=== PATIENT | female | born 1945 | race Caucasian/White ===

== ENCOUNTER 2017-05-12 17:02 | Inpatient (IN) | payer MEDICARE, OTHER ==
[~2017-05-12] VITALS: Ht 162.6 cm; Wt 101.6 kg
[2017-05-12] MEDS ORDERED: LISI-607 PO (17:50)
[2017-05-12] MEDS ORDERED: ATOR10TA PO (17:50)
[2017-05-12] MEDS ORDERED: METF500T4 PO (17:50)
[2017-05-12] MEDS ORDERED: ARIP15TA3 PO (17:50)
[2017-05-12] MEDS ORDERED: MAG HYDROX/AL HYDROX/SIMETH 30 ML UDC PO PRN (18:30)
[2017-05-12] MEDS ORDERED: MAGNESIUM HYDROXIDE 30 ML UDC PO PRN (18:30)
[2017-05-12] MEDS ORDERED: ALBU18HF2 INH (19:19)
[2017-05-12 19:32] VITALS: BP 136/77
[2017-05-12] MEDS ORDERED: DEXTROSE 50%-WATER 50 ML DISP.SYRIN IV PRN (20:00)
[2017-05-12] MEDS: ATORVASTATIN 10 MG TABLET PO SCH (21:14)
[2017-05-12] MEDS: BLOOD SUGAR DIAGNOSTIC 1 EACH STRIP IN SCH (21:27)
[2017-05-12 22:38] VITALS: BP 134/70
[2017-05-13 06:47] LABS: ALANINE AMINOTRANSFERASE 8 U/L (12-78); ALBUMIN 3.4 g/dL (3.4-5.0); ALKALINE PHOSPHATASE 74 U/L (46-116); ASPARTATE AMINOTRANSFERASE 16 U/L (15-37); BILIRUBIN,TOTAL 0.4 mg/dL (0.2-1.0); CALCIUM, SERUM 8.8 mg/dL (8.5-10.1); CARBON DIOXIDE 29 mmol/L (21-32); CHLORIDE 101 mmol/L (98-107); CREATININE 0.8 mg/dL (0.6-1.3); GLUCOSE 195 mg/dL (74-106); POTASSIUM 3.7 mmol/L (3.5-5.1); SODIUM SERUM 138 mmol/L (136-145); TOTAL PROTEIN, SERUM 6.6 g/dL (6.4-8.2); UREA NITROGEN, BLOOD 15 mg/dL (7-18)
[2017-05-13 06:55] LABS: CHOLESTEROL 129 mg/dL (<200); HDL CHOLESTEROL 59 mg/dL (40-60); LDL 63 mg/dL (0-99); TRIGLYCERIDES 131 mg/dL (30-150)
[2017-05-13] MEDS ORDERED: ALBUTEROL FS 2.5 MG/3 ML VIAL.NEB NEB PRN (07:57)
[2017-05-13 08:00] VITALS: BP 147/90
[2017-05-13] MEDS: BLOOD SUGAR DIAGNOSTIC 1 EACH STRIP IN SCH ×4 (08:15→22:21)
[2017-05-13] MEDS: METFORMIN 500 MG TABLET PO SCH ×2 (08:17→16:18)
[2017-05-13] MEDS: LISINOPRIL (5MG) 5 MG TABLET PO SCH (08:18)
[2017-05-13] MEDS: ARIPIPRAZOLE 5 MG TABLET PO SCH (11:15)
[2017-05-13 16:00] VITALS: BP 125/69
[2017-05-13 19:51] VITALS: BP 138/54
[2017-05-13] MEDS: ATORVASTATIN 10 MG TABLET PO SCH (21:18)
[2017-05-13] MEDS: INSULIN REGULAR, HUMAN 100 UNIT/ML 3 ML VIAL SQ PRN (22:22)
[2017-05-13 23:00] VITALS: BP 129/66
[2017-05-14] MEDS: ZOLPIDEM TARTRATE 5 MG TABLET PO PRN (00:10)
[2017-05-14 07:47] VITALS: BP 143/50
[2017-05-14] MEDS: LISINOPRIL (5MG) 5 MG TABLET PO SCH (08:01)
[2017-05-14] MEDS: ARIPIPRAZOLE 5 MG TABLET PO SCH (08:01)
[2017-05-14] MEDS: METFORMIN 500 MG TABLET PO SCH ×2 (08:01→16:01)
[2017-05-14] MEDS: BLOOD SUGAR DIAGNOSTIC 1 EACH STRIP IN SCH ×4 (08:01→21:56)
[2017-05-14] MEDS: INSULIN REGULAR, HUMAN 100 UNIT/ML 3 ML VIAL SQ PRN ×3 (08:32→22:19)
[2017-05-14] MEDS: AMOX/CLAVULANATE 875 MG TABLET PO SCH ×2 (09:25→20:32)
[2017-05-14] MEDS: BACITRACIN ZINC OINT PACKET 1 EA PACKET TP SCH ×2 (09:27→16:01)
[2017-05-14] MEDS: LORAZEPAM 0.5 MG TABLET PO PRN (14:13)
[2017-05-14] MEDS: ACETAMINOPHEN 325 MG TABLET PO PRN ×2 (15:58→22:14)
[2017-05-14 16:00] VITALS: BP 107/53
[2017-05-14] MEDS: CLOTRIMAZOLE 1% 15 GM TUBE TP SCH (16:01)
[2017-05-14 19:48] VITALS: BP 99/50
[2017-05-14 21:07] VITALS: BP 133/64
[2017-05-14] MEDS: ATORVASTATIN 10 MG TABLET PO SCH (21:54)
[2017-05-15] MEDS ORDERED: IBUPROFEN 400 MG TABLET ONE (01:19)
[2017-05-15] MEDS: IBUPROFEN 400 MG TABLET PO PRN (01:25)
[2017-05-15] MEDS: BLOOD SUGAR DIAGNOSTIC 1 EACH STRIP IN SCH ×4 (07:30→21:38)
[2017-05-15 08:00] VITALS: BP 156/68
[2017-05-15] MEDS: AMOX/CLAVULANATE 875 MG TABLET PO SCH ×2 (08:39→21:17)
[2017-05-15] MEDS: METFORMIN 500 MG TABLET PO SCH ×2 (08:39→18:28)
[2017-05-15] MEDS: LISINOPRIL (5MG) 5 MG TABLET PO SCH (08:39)
[2017-05-15] MEDS: ARIPIPRAZOLE 5 MG TABLET PO SCH (08:39)
[2017-05-15] MEDS: CLOTRIMAZOLE 1% 15 GM TUBE TP SCH ×2 (08:43→18:19)
[2017-05-15] MEDS: BACITRACIN ZINC OINT PACKET 1 EA PACKET TP SCH ×2 (08:43→18:29)
[2017-05-15] MEDS: INSULIN REGULAR, HUMAN 100 UNIT/ML 3 ML VIAL SQ PRN ×4 (08:45→21:37)
[2017-05-15] MEDS: LORAZEPAM 0.5 MG TABLET PO PRN (12:47)
[2017-05-15 16:00] VITALS: BP 112/59
[2017-05-15 20:06] VITALS: BP 114/61
[2017-05-15] MEDS: ATORVASTATIN 10 MG TABLET PO SCH (21:17)
[2017-05-15] MEDS: ZOLPIDEM TARTRATE 5 MG TABLET PO PRN (22:09)
[2017-05-16 08:00] VITALS: BP 141/67
[2017-05-16] MEDS: ARIPIPRAZOLE 5 MG TABLET PO SCH ×2 (08:43→16:35)
[2017-05-16] MEDS: METFORMIN 500 MG TABLET PO SCH ×2 (08:43→16:11)
[2017-05-16] MEDS: AMOX/CLAVULANATE 875 MG TABLET PO SCH ×2 (08:43→21:07)
[2017-05-16] MEDS: BLOOD SUGAR DIAGNOSTIC 1 EACH STRIP IN SCH ×4 (08:45→21:51)
[2017-05-16] MEDS: BACITRACIN ZINC OINT PACKET 1 EA PACKET TP SCH ×2 (08:45→16:36)
[2017-05-16] MEDS: CLOTRIMAZOLE 1% 15 GM TUBE TP SCH ×2 (08:45→16:14)
[2017-05-16] MEDS: LISINOPRIL (5MG) 5 MG TABLET PO SCH (08:45)
[2017-05-16] MEDS: INSULIN REGULAR, HUMAN 100 UNIT/ML 3 ML VIAL SQ PRN ×3 (12:14→21:53)
[2017-05-16] MEDS: ACETAMINOPHEN 325 MG TABLET PO PRN (12:19)
[2017-05-16 15:40] VITALS: BP 131/63
[2017-05-16 20:00] VITALS: BP 131/68
[2017-05-16] MEDS: ATORVASTATIN 10 MG TABLET PO SCH (21:07)
[2017-05-16] MEDS: ZOLPIDEM TARTRATE 5 MG TABLET PO PRN (21:08)
[2017-05-17] MEDS: LORAZEPAM 0.5 MG TABLET PO PRN (03:24)
[2017-05-17 06:42] LABS: BASOPHILS % (AUTO) 0.7 % (0.0-2.0); EOSINOPHILS # (AUTO) 0.1 /CMM (0.0-0.7); EOSINOPHILS % (AUTO) 1.7 % (0.0-6.0); HEMATOCRIT 35 % (33-45); HEMOGLOBIN 12.2 g/dL (11.5-14.8); LYMPHOCYTES # (AUTO) 2.6 /CMM (0.8-4.8); LYMPHOCYTES % (AUTO) 44.6 % (20.0-44.0); MEAN CORPUSCULAR HEMOGLOBIN 30 PG (26.0-33.0); MEAN CORPUSCULAR HGB CONC 35 g/dl (31.0-36.0); MEAN CORPUSCULAR VOLUME 88 fL (82-100); MONOCYTES # (AUTO) 0.6 /CMM (0.1-1.30); MONOCYTES % (AUTO) 9.4 % (2.0-12.0); NEUTROPHILS # (AUTO) 2.6 /CMM (1.8-8.9); NEUTROPHILS % (AUTO) 43.6 % (43.0-81.0); PLATELET COUNT (AUTO) 274 /CMM (150-450); RDW COEFFICIENT OF VARIATION 13.1 (11.5-15.0); RED BLOOD CELL COUNT(AUTO) 4.03 MIL/uL (4.0-5.2); WHITE BLOOD COUNT (AUTO) 5.9 K/uL (4.3-11.0)
[2017-05-17 07:11] LABS: CALCIUM, SERUM 8.5 mg/dL (8.5-10.1); CARBON DIOXIDE 28 mmol/L (21-32); CHLORIDE 105 mmol/L (98-107); CREATININE 0.6 mg/dL (0.6-1.3); GLUCOSE 107 mg/dL (74-106); POTASSIUM 3.9 mmol/L (3.5-5.1); SODIUM SERUM 140 mmol/L (136-145); UREA NITROGEN, BLOOD 13 mg/dL (7-18)
[2017-05-17] MEDS: BLOOD SUGAR DIAGNOSTIC 1 EACH STRIP IN SCH ×4 (07:23→21:12)
[2017-05-17] MEDS: INSULIN REGULAR, HUMAN 100 UNIT/ML 3 ML VIAL SQ PRN ×4 (07:25→21:59)
[2017-05-17 08:00] VITALS: BP 141/52
[2017-05-17] MEDS: LISINOPRIL (5MG) 5 MG TABLET PO SCH (08:35)
[2017-05-17] MEDS: ARIPIPRAZOLE 5 MG TABLET PO SCH ×2 (08:35→16:04)
[2017-05-17] MEDS: AMOX/CLAVULANATE 875 MG TABLET PO SCH ×2 (08:35→20:21)
[2017-05-17] MEDS: METFORMIN 500 MG TABLET PO SCH ×2 (08:35→16:04)
[2017-05-17] MEDS: CLOTRIMAZOLE 1% 15 GM TUBE TP SCH ×2 (08:36→16:05)
[2017-05-17] MEDS: BACITRACIN ZINC OINT PACKET 1 EA PACKET TP SCH ×2 (08:36→16:04)
[2017-05-17] MEDS: IBUPROFEN 400 MG TABLET PO PRN (12:45)
[2017-05-17 16:00] VITALS: BP 110/53
[2017-05-17 20:00] VITALS: BP 115/60
[2017-05-17] MEDS: ATORVASTATIN 10 MG TABLET PO SCH (21:12)
[2017-05-18] MEDS: IBUPROFEN 400 MG TABLET PO PRN ×2 (05:59→14:55)
[2017-05-18] MEDS: BLOOD SUGAR DIAGNOSTIC 1 EACH STRIP IN SCH ×4 (07:52→21:31)
[2017-05-18 08:00] VITALS: BP 127/60
[2017-05-18] MEDS: INSULIN REGULAR, HUMAN 100 UNIT/ML 3 ML VIAL SQ PRN ×2 (08:09→18:14)
[2017-05-18] MEDS: ARIPIPRAZOLE 5 MG TABLET PO SCH ×2 (08:49→16:09)
[2017-05-18] MEDS: LISINOPRIL (5MG) 5 MG TABLET PO SCH (08:49)
[2017-05-18] MEDS: BACITRACIN ZINC OINT PACKET 1 EA PACKET TP SCH ×2 (08:49→16:10)
[2017-05-18] MEDS: METFORMIN 500 MG TABLET PO SCH ×2 (08:49→16:09)
[2017-05-18] MEDS: AMOX/CLAVULANATE 875 MG TABLET PO SCH ×2 (08:49→21:13)
[2017-05-18] MEDS: CLOTRIMAZOLE 1% 15 GM TUBE TP SCH ×2 (08:50→16:10)
[2017-05-18 16:25] VITALS: BP 129/77
[2017-05-18 20:00] VITALS: BP 130/69
[2017-05-18] MEDS: ATORVASTATIN 10 MG TABLET PO SCH (21:13)
[2017-05-19] MEDS: LORAZEPAM 0.5 MG TABLET PO PRN (03:17)
[2017-05-19 07:59] VITALS: BP 138/76
[2017-05-19] MEDS: METFORMIN 500 MG TABLET PO SCH ×2 (08:09→16:52)
[2017-05-19] MEDS: AMOX/CLAVULANATE 875 MG TABLET PO SCH ×2 (08:09→21:43)
[2017-05-19] MEDS: LISINOPRIL (5MG) 5 MG TABLET PO SCH (08:09)
[2017-05-19] MEDS: ARIPIPRAZOLE 5 MG TABLET PO SCH ×2 (08:09→16:52)
[2017-05-19] MEDS: BACITRACIN ZINC OINT PACKET 1 EA PACKET TP SCH ×2 (08:10→17:03)
[2017-05-19] MEDS: CLOTRIMAZOLE 1% 15 GM TUBE TP SCH ×2 (08:11→17:03)
[2017-05-19] MEDS: BLOOD SUGAR DIAGNOSTIC 1 EACH STRIP IN SCH ×4 (08:11→21:39)
[2017-05-19] MEDS: IBUPROFEN 400 MG TABLET PO PRN (14:48)
[2017-05-19 15:51] VITALS: BP 117/58
[2017-05-19] MEDS: INSULIN REGULAR, HUMAN 100 UNIT/ML 3 ML VIAL SQ PRN ×2 (17:14→22:23)
[2017-05-19 19:45] VITALS: BP 139/77
[2017-05-19] MEDS: ZOLPIDEM TARTRATE 5 MG TABLET PO PRN (21:43)
[2017-05-19] MEDS: ATORVASTATIN 10 MG TABLET PO SCH (21:43)
[2017-05-20] MEDS: IBUPROFEN 400 MG TABLET PO PRN ×2 (00:35→08:59)
[2017-05-20 08:00] VITALS: BP 123/62
[2017-05-20] MEDS: LISINOPRIL (5MG) 5 MG TABLET PO SCH (08:15)
[2017-05-20] MEDS: METFORMIN 500 MG TABLET PO SCH (08:15)
[2017-05-20] MEDS: ARIPIPRAZOLE 5 MG TABLET PO SCH (08:15)
[2017-05-20] MEDS: AMOX/CLAVULANATE 875 MG TABLET PO SCH (08:15)
[2017-05-20] MEDS: BACITRACIN ZINC OINT PACKET 1 EA PACKET TP SCH (08:16)
[2017-05-20] MEDS: CLOTRIMAZOLE 1% 15 GM TUBE TP SCH (08:16)
[2017-05-20] MEDS: BLOOD SUGAR DIAGNOSTIC 1 EACH STRIP IN SCH ×2 (08:18→12:29)
[2017-05-20] MEDS: INSULIN REGULAR, HUMAN 100 UNIT/ML 3 ML VIAL SQ PRN ×2 (08:53→12:29)
[2017-05-20 16:00] VITALS: BP 112/62
== END 2017-05-20 16:00 | DRG 885 ==
LOC: GPS 17:02
PROVIDERS: ADMIT Psychiatry & Neurology Psychiatry; ATTEND Psychiatry & Neurology Psychiatry
DX: F31.9 Bipolar disorder, unspecified (principal); E11.65 Type 2 diabetes mellitus with hyperglycemia; E78.5 Hyperlipidemia, unspecified; F29 Unspecified psychosis not due to a substance or known physiological condition; Z73.6 Limitation of activities due to disability; G47.33 Obstructive sleep apnea (adult) (pediatric); E66.9 Obesity, unspecified; Z79.899 Other long term (current) drug therapy; Z59.0 Homelessness; Z68.38 Body mass index [BMI] 38.0-38.9, adult; L03.031 Cellulitis of right toe; B35.9 Dermatophytosis, unspecified; L60.0 Ingrowing nail
CPT/HCPCS: 36415; 80048-TC; 80053-TC; 80061-TC; 82962-TC; 85025-TC; 87081-TC; 93971-TC; J1815

== ENCOUNTER 2017-10-29 11:55 | Inpatient (IN) | payer MEDICARE, OTHER ==
[~2017-10-29] VITALS: Ht 160 cm; Wt 93.4 kg
[~2017-10-29 11:55] MED LIST: ALBU18HF2 INH; ATOR10TA PO; LISI-607 PO; METF500T6 PO
[2017-10-30 14:25] VITALS: BP 137/65
[2017-10-30] MEDS ORDERED: MAGNESIUM HYDROXIDE 30 ML UDC PO PRN (14:30)
[2017-10-30] MEDS ORDERED: MAG HYDROX/AL HYDROX/SIMETH 30 ML UDC PO PRN (14:30)
--- NOTE | 2017-10-30 15:11 | NUR ---
GPS RN ADMITTING NOTE: PATIENT ADMITTED FROM [facility] ON 5150 FO DTO,GD, PER HOLD PT PT HAS DX OF SCHIZOPHRENIA REFUSING FCI EVICTED FROM HER PLACE. PT WAS WALKING AROUND THE HOUSE WITH DRESS WIDE OPEN EXPOSING HERSELF. PT THROWING ITEMS AROUND THE HOUSE YELLING REFUSING MEDICATIONS. UPON FACE TO FACE ASSESSMENT PT PARANOID,ANXIOUS ,A/OX1 . REFUSED SKIN ASSESSMENT REFUSED TO SIGN ADMITTING PAPERS.DR FERMIN NOTIFIED WITH ORDERS WILL CONTINUE MONITORING FOR SAFETY AND BEHAVIOR Q 15 MIN INDORSE TO INCOMING SHIFT RN FOR CONTINUATION OF CARE.
--- NOTE | 2017-10-30 15:42 | NUR ---
GPS RN NOTE; DR MONGE NOTIFIED OF ADMISSION TO [facility].
[2017-10-30 16:29] VITALS: BP 137/65
[2017-10-30] MEDS: LORAZEPAM 0.5 MG TABLET PO PRN (18:56)
--- NOTE | 2017-10-30 18:57 | NUR ---
GPS RN NOTE; PATIENT YELLING VERY ANXIOUS ATIVAN 1 MG PO PRN GIVEN PER ORDER WILL CONTINUE MONITORING FOR SAFETY AND BEHAVIOR Q 15 MIN.
[2017-10-30 20:25] VITALS: BP 132/86
[2017-10-30] MEDS: ZOLPIDEM TARTRATE 5 MG TABLET PO PRN (20:47)
[2017-10-30] MEDS: ACETAMINOPHEN 325 MG TABLET PO PRN (20:47)
[2017-10-31 07:40] LABS: ALANINE AMINOTRANSFERASE 13 U/L (12-78); ALBUMIN 3.6 g/dL (3.4-5.0); ALKALINE PHOSPHATASE 81 U/L (46-116); ASPARTATE AMINOTRANSFERASE 15 U/L (15-37); BILIRUBIN,TOTAL 0.6 mg/dL (0.2-1.0); CARBON DIOXIDE 28 mmol/L (21-32); CHLORIDE 102 mmol/L (98-107); CREATININE 0.7 mg/dL (0.6-1.3); GLUCOSE 158 mg/dL (74-106); POTASSIUM 4.4 mmol/L (3.5-5.1); SODIUM SERUM 138 mmol/L (136-145); TOTAL PROTEIN, SERUM 6.9 g/dL (6.4-8.2); UREA NITROGEN, BLOOD 8 mg/dL (7-18)
[2017-10-31 07:44] LABS: CHOLESTEROL 158 mg/dL (<200); HDL CHOLESTEROL 57 mg/dL (40-60); LDL 89 mg/dL (0-99); TRIGLYCERIDES 139 mg/dL (30-150)
[2017-10-31] MEDS: LORAZEPAM 0.5 MG TABLET PO PRN (08:36)
--- NOTE | 2017-10-31 08:40 | NUR ---
GPS/RN-NOTES PATIENT PACING IN THE HALLWAY SCREAMING AND YELLING,UNABLE TO SIT STILL WITH EPISODE OF CRYING. REDIRECTED PATIENT AND OFFERED ATIVAN AND AGREED. ATIVAN 1MG P.O GIVEN PRN ORDER. WILL CONT. MONITORING Q15 MINS. FOR SAFETY AND BEHAVIOR.
[2017-10-31] MEDS ORDERED: BENZ1TAB7 PO (08:47)
[2017-10-31] MEDS ORDERED: ARIP15TA8 PO (08:47)
[2017-10-31] MEDS ORDERED: DULO60CA63 PO (08:47)
[2017-10-31 09:15] VITALS: BP 128/70
[2017-10-31] MEDS: BLOOD SUGAR DIAGNOSTIC 1 EACH STRIP IN SCH ×3 (12:50→21:29)
--- NOTE | 2017-10-31 12:51 | NUR ---
GPS/RN-NOTES PATIENT BLOOD SUGAR WAS 143MG/DL, 2UNITS OF R INSULIN NOT GIVEN DUE TO PATIENT REFUSED.STATED" I JUST FINISH MY LUNCH OF COURSE MY SUGAR WILL BE UP". CHARGE NURSE AWARE.
[2017-10-31] MEDS ORDERED: DEXTROSE 50%-WATER 50 ML DISP.SYRIN IV PRN (13:00)
[2017-10-31] MEDS ORDERED: ALBUTEROL FS 2.5 MG/0.5 ML VIAL.NEB NEB PRN (13:30)
[2017-10-31 16:00] VITALS: BP 114/57
--- NOTE | 2017-10-31 16:20 | NUR ---
Initial Discharge Plan: Pt currently resides at [address] [place] [id number]; ([phone]). Per pt, she does not want to return there and would like to go to a detention facility. SW will work with the pt and the MD regarding appropriate discharge planning. SW will form a safe and proper discharge.
--- NOTE | 2017-10-31 16:20 | NUR ---
CATHLEEN called the pt's brother, Wagner Noel ([phone]), and was unable to leave a message due to his voicemail being full.
[2017-10-31] MEDS: ARIPIPRAZOLE 5 MG TABLET PO SCH (16:35)
[2017-10-31] MEDS: BENZTROPINE MESYLATE (1 MG) 1 MG TABLET PO SCH (16:35)
[2017-10-31] MEDS: METFORMIN 500 MG TABLET PO SCH (16:35)
[2017-10-31] MEDS: ACETAMINOPHEN 325 MG TABLET PO PRN (16:35)
--- NOTE | 2017-10-31 16:51 | NUR ---
GPS/RN-NOTES PATIENT C/O HEADACHE AND REQUESTING FOR TYLENOL, TYLENOL 650MG P.O GIVEN PRN ORDER. WILL CONT. MONITORING .
[2017-10-31] MEDS: INSULIN REGULAR, HUMAN 100 UNIT/ML 3 ML VIAL SQ PRN (18:20)
[2017-10-31 19:15] LABS: APPEARANCE,URINE CLEAR (CLEAR); BILIRUBIN,URINE NEGATIVE (NEGATIVE); BLOOD, URINE NEGATIVE Ery/uL (NEGATIVE); COLOR,URINE YELLOW (YELLOW); KETONES,URINE NEGATIVE (NEGATIVE); LEUKOCYTE ESTERASE ,URINE NEGATIVE (NEGATIVE); NITRITE, URINE NEGATIVE (NEGATIVE); PROTEIN,URINE NEGATIVE (NEGATIVE); UGLUCOSE NEGATIVE (NEGATIVE); UROBILINOGEN,URINE 0.2 EU/dL (0.2)
[2017-10-31 20:00] VITALS: BP 132/50
[2017-10-31] MEDS: DIVALPROEX SODIUM 250 MG TABLET.DR PO SCH ×2 (20:32→21:00)
[2017-10-31] MEDS: ATORVASTATIN 10 MG TABLET PO SCH (21:13)
[2017-10-31] MEDS: ZOLPIDEM TARTRATE 5 MG TABLET PO PRN (21:13)
--- NOTE | 2017-10-31 21:14 | NUR ---
AMBIEN 5 MG TAB 1 PO GIVEN FOR SLEEP PER PATIENT'S REQUEST.
--- NOTE | 2017-10-31 21:33 | NUR ---
ACCUCHECK 134 MG/DL, PATIENT REFUSED INSULIN, OFFERED X2, STILL REFUSED. PATIENT STATED, " I'M NOT GONNA TAKE IT AGAIN, THEY JUST GAVE ME."
--- NOTE | 2017-10-31 21:34 | NUR ---
PATEINT C/O NECK PAIN, MEDICATION NOT DUE YET. CALLED DR. JUSTICE, ORDERED TO CHANGE TYLENOL 650 MG Q 4 HRS. PRN
--- NOTE | 2017-10-31 21:36 | NUR ---
PATIENT WAS OFFERED TYLENOL 650 MG PO X2, FOR HER NECK PAIN. PATIENT REFUSED TYLENOL.
--- NOTE | 2017-10-31 22:29 | NUR ---
2100 PATIENT REFUSED DEPAKOTE 250 MG TAB TONIGHT. OFFERED 2X, STILL REFUSED.
[2017-11-01] MEDS: BLOOD SUGAR DIAGNOSTIC 1 EACH STRIP IN SCH ×4 (07:38→21:20)
[2017-11-01 08:00] VITALS: BP 125/80
[2017-11-01] MEDS: METFORMIN 500 MG TABLET PO SCH ×2 (08:12→16:55)
[2017-11-01] MEDS: DIVALPROEX SODIUM 250 MG TABLET.DR PO SCH ×2 (08:12→21:09)
[2017-11-01] MEDS: BENZTROPINE MESYLATE (1 MG) 1 MG TABLET PO SCH ×2 (08:12→16:55)
[2017-11-01] MEDS: DULOXETINE HCL 30 MG CAPSULE.DR PO SCH (08:12)
[2017-11-01] MEDS: ARIPIPRAZOLE 5 MG TABLET PO SCH ×2 (08:12→16:55)
[2017-11-01] MEDS: LISINOPRIL (5MG) 5 MG TABLET PO SCH (08:13)
[2017-11-01 08:50] LABS: MAGNESIUM 1.9 mg/dL (1.8-2.4); PHOSPHORUS 4.4 mg/dL (2.5-4.9)
[2017-11-01] MEDS: INSULIN REGULAR, HUMAN 100 UNIT/ML 3 ML VIAL SQ PRN (08:53)
[2017-11-01 09:37] LABS: THYROID STIMULATING HORMONE 1.845 uIU/mL (0.358-3.74)
[2017-11-01] MEDS: LORAZEPAM 0.5 MG TABLET PO PRN (11:16)
--- NOTE | 2017-11-01 11:19 | NUR ---
GPS/RN-NOTES PATIENT IN HER ROOM SCREAMING AND YELLING, WITH EPISODE OF CRYING. REDIRECTED PATIENT AND OFFERED ATIVAN AND AGREED. ATIVAN 1MG P.O GIVEN PRN ORDER. WILL CONT. MONITORING Q15 MINS. FOR SAFETY AND BEHAVIOR.
--- NOTE | 2017-11-01 11:47 | NUR ---
GPS/RN-NOTES SEEN BY SALEEM MAI TODAY WITH VERBAL ORDER OF IBUPROFEN 400MG P.O Q8HRS PRN AND STONE REPAIRER CONSULT NOTED AND CARRIED OUT.
--- NOTE | 2017-11-01 12:20 | NUR ---
GPS/RN-NOTES PATIENT SITTING IN HER BED WRITING,CALM,NO ACUTE DISTRESS NOTED.
--- NOTE | 2017-11-01 14:47 | NUR ---
SW sent out referrals and the pt was accepted into [facility].
[2017-11-01 16:16] VITALS: BP 129/79
[2017-11-01 20:00] VITALS: BP 131/81
--- NOTE | 2017-11-01 20:15 | NUR ---
Patient up ambulating with her walker, in good mood at this time, calm and cooperative. No complaints made, comfortable, shows no s/s of pain. Patient in and out of her room to the dining area and back. Will continue to monitor q 15 mins. to maintain safety.
[2017-11-01] MEDS: ZOLPIDEM TARTRATE 5 MG TABLET PO PRN (21:10)
[2017-11-01] MEDS: ATORVASTATIN 10 MG TABLET PO SCH (21:10)
--- NOTE | 2017-11-01 21:35 | NUR ---
ACCUCHECK 110 MG/DL, NO INSULIN DUE AT THSI TIME. HS SNACKS GIVEN.
[2017-11-02] MEDS: ACETAMINOPHEN 650 MG/20.3 ML UDC NG PRN (02:30)
--- NOTE | 2017-11-02 02:31 | NUR ---
c/o right neck pain, tylenol 650 mg po given.
[2017-11-02] MEDS: IBUPROFEN 400 MG TABLET PO PRN ×2 (06:42→17:34)
--- NOTE | 2017-11-02 06:43 | NUR ---
MOTRIN 400 MG TAB PO GIVEN.FOR NECK PAIN.
[2017-11-02] MEDS: BLOOD SUGAR DIAGNOSTIC 1 EACH STRIP IN SCH ×4 (07:30→22:10)
[2017-11-02 08:00] VITALS: BP 145/83
[2017-11-02] MEDS: BENZTROPINE MESYLATE (1 MG) 1 MG TABLET PO SCH ×2 (09:46→17:34)
[2017-11-02] MEDS: ARIPIPRAZOLE 5 MG TABLET PO SCH ×2 (09:47→17:35)
[2017-11-02] MEDS: METFORMIN 500 MG TABLET PO SCH ×2 (09:47→17:35)
[2017-11-02] MEDS: DULOXETINE HCL 30 MG CAPSULE.DR PO SCH (09:47)
[2017-11-02] MEDS: DIVALPROEX SODIUM 250 MG TABLET.DR PO SCH ×2 (09:48→22:10)
[2017-11-02] MEDS: LISINOPRIL (5MG) 5 MG TABLET PO SCH (09:48)
--- NOTE | 2017-11-02 11:30 | NUR ---
dr. benitez informed pt. c/o frequency of urination.
--- NOTE | 2017-11-02 13:30 | NUR ---
dr. larson in to see pt.
[2017-11-02 16:44] VITALS: BP 109/71
--- NOTE | 2017-11-02 19:50 | NUR ---
GPSRN AMBULATORY, ALL NEEDS ATTENDED. STABLE FOR NOW. SAFETY PRECAUTIONS EMPHASIZED, APPEARS TO UNDERSTAND. CLOSELY WATCHED.
[2017-11-02 20:00] VITALS: BP 144/67
[2017-11-02] MEDS ORDERED: ATORVASTATIN 10 MG TABLET ONE (21:29)
[2017-11-02] MEDS: ATORVASTATIN 10 MG TABLET PO SCH (22:10)
--- NOTE | 2017-11-02 22:30 | NUR ---
GPSRN BS WAS 122. OTHER DUE MEDS ADMINISTERED
[2017-11-03] MEDS: ACETAMINOPHEN 650 MG/20.3 ML UDC NG PRN (06:59)
--- NOTE | 2017-11-03 07:08 | NUR ---
GPSRN VERBALIZES RIGHT SHOULDER AND HIP PAIN, TYLENOL ADMINISTERED.
[2017-11-03 08:00] VITALS: BP 107/62
[2017-11-03] MEDS: BLOOD SUGAR DIAGNOSTIC 1 EACH STRIP IN SCH ×4 (08:08→20:33)
[2017-11-03] MEDS: INSULIN REGULAR, HUMAN 100 UNIT/ML 3 ML VIAL SQ PRN ×2 (08:10→17:24)
[2017-11-03] MEDS: BENZTROPINE MESYLATE (1 MG) 1 MG TABLET PO SCH ×2 (09:02→17:16)
[2017-11-03] MEDS: METFORMIN 500 MG TABLET PO SCH ×2 (09:02→17:16)
[2017-11-03] MEDS: LISINOPRIL (5MG) 5 MG TABLET PO SCH (09:03)
[2017-11-03] MEDS: DIVALPROEX SODIUM 250 MG TABLET.DR PO SCH ×2 (09:03→20:13)
[2017-11-03] MEDS: DULOXETINE HCL 30 MG CAPSULE.DR PO SCH (09:03)
[2017-11-03] MEDS: ARIPIPRAZOLE 5 MG TABLET PO SCH ×2 (09:03→17:16)
[2017-11-03] MEDS: IBUPROFEN 400 MG TABLET PO PRN (13:03)
--- NOTE | 2017-11-03 13:03 | NUR ---
RN NOTES ADMINISTERED MOTRIN 400 MG PO PRN FOR GENERALIZED PAIN 10/29 PER PATIENT REQUEST, CONTINUED MONITORING.
[2017-11-03 16:00] VITALS: BP 124/64
--- NOTE | 2017-11-03 17:52 | NUR ---
RN NOTES ADMINISTERED MILK OF MAGNESIA 30 MG/ML PO PRN FOR CONSTIPATION, PER PATIENT REQUEST, CONTINUED MONITORING.
[2017-11-03 20:13] VITALS: BP 117/62
--- NOTE | 2017-11-03 20:33 | NUR ---
ACCUCHECK PER PATIENT'S REQUEST = 119 MG/DL, NO INSULIN DUE AT THIS TIME. HS SNACKS GIVEN.
--- NOTE | 2017-11-03 20:44 | NUR ---
PATIENT HAD A LARGE BOWEL MOVEMENT X1. LAXATIVE EFFECTIVE.
[2017-11-03] MEDS: ATORVASTATIN 10 MG TABLET PO SCH (21:17)
[2017-11-03] MEDS: ZOLPIDEM TARTRATE 5 MG TABLET PO PRN (21:17)
--- NOTE | 2017-11-03 21:20 | NUR ---
ZOLPIDEM 5 MG TAB 1 PO GIVEN FOR SLEEP PER PATIENT'S REQUEST @ 0889
[2017-11-04] MEDS: BLOOD SUGAR DIAGNOSTIC 1 EACH STRIP IN SCH ×4 (07:51→21:56)
[2017-11-04] MEDS: DULOXETINE HCL 30 MG CAPSULE.DR PO SCH (09:13)
[2017-11-04] MEDS: ARIPIPRAZOLE 5 MG TABLET PO SCH ×2 (09:13→17:42)
[2017-11-04] MEDS: METFORMIN 500 MG TABLET PO SCH ×2 (09:13→17:39)
[2017-11-04] MEDS: BENZTROPINE MESYLATE (1 MG) 1 MG TABLET PO SCH ×2 (09:13→17:39)
[2017-11-04] MEDS: DIVALPROEX SODIUM 250 MG TABLET.DR PO SCH ×2 (09:14→21:33)
[2017-11-04] MEDS: LISINOPRIL (5MG) 5 MG TABLET PO SCH (09:14)
[2017-11-04 09:16] VITALS: BP 115/67
[2017-11-04] MEDS: INSULIN REGULAR, HUMAN 100 UNIT/ML 3 ML VIAL SQ PRN ×3 (09:17→22:01)
[2017-11-04] MEDS: IBUPROFEN 400 MG TABLET PO PRN (11:24)
--- NOTE | 2017-11-04 11:24 | NUR ---
RN NOTES ADMINISTERED MOTRIN 400 MG PO PRN FOR LOWER BACK PAIN 08/29 PER PATIENT REQUEST, CONTINUED MONITORING.
--- NOTE | 2017-11-04 11:49 | NUR ---
SW called Gi ([phone]), the pt's licensed clinical social worker, and left a message on her voicemail.
--- NOTE | 2017-11-04 11:50 | NUR ---
Pt was accepted to [facility] and [facility].
[2017-11-04 16:00] VITALS: BP 100/64
[2017-11-04] MEDS: LORAZEPAM 0.5 MG TABLET PO PRN (18:52)
--- NOTE | 2017-11-04 18:52 | NUR ---
RN NOTES ADMINISTERED ATIVAN 1 MG PO PRN FOR ANXIETY PER PATIENT REQUEST, V/S STABLE, CONTINUED MONITORING.
[2017-11-04 19:56] VITALS: BP 99/47
[2017-11-04] MEDS: ATORVASTATIN 10 MG TABLET PO SCH (21:33)
[2017-11-05] MEDS: IBUPROFEN 400 MG TABLET PO PRN (01:51)
[2017-11-05 08:00] VITALS: BP 126/78
[2017-11-05] MEDS: BENZTROPINE MESYLATE (1 MG) 1 MG TABLET PO SCH ×2 (08:16→17:37)
[2017-11-05] MEDS: DULOXETINE HCL 30 MG CAPSULE.DR PO SCH (08:16)
[2017-11-05] MEDS: METFORMIN 500 MG TABLET PO SCH ×2 (08:16→17:37)
[2017-11-05] MEDS: LISINOPRIL (5MG) 5 MG TABLET PO SCH (08:18)
[2017-11-05] MEDS: INSULIN REGULAR, HUMAN 100 UNIT/ML 3 ML VIAL SQ PRN ×3 (08:21→21:41)
[2017-11-05] MEDS: BLOOD SUGAR DIAGNOSTIC 1 EACH STRIP IN SCH ×5 (08:22→21:39)
[2017-11-05] MEDS: DIVALPROEX SODIUM 250 MG TABLET.DR PO SCH ×2 (08:38→21:20)
[2017-11-05] MEDS: ARIPIPRAZOLE 5 MG TABLET PO SCH ×2 (09:00→17:37)
--- NOTE | 2017-11-05 09:00 | NUR ---
[id number]: CALLED PHARMACY FOR ABILIFY NOT BEING AVAILABLE. PHARMACIST SAID THEY WILL BE STOCKING SHORTLY.
--- NOTE | 2017-11-05 11:00 | NUR ---
[id number]: CALLED PHARMACY FOR ABILIFY NOT STILL BEING AVAILABLE. PHARMACIST SAID THEY WILL BE STOCKING SHORTLY.
--- NOTE | 2017-11-05 13:02 | NUR ---
[id number]: CALLED PHARMACY FOR ABILIFY NOT BEING AVAILABLE. PHARMACIST SAID THEY HAVE TO DOSAGE PROPERLY AND WILL BE BRINGING IT UP LATER ON
[2017-11-05 16:18] VITALS: BP 113/62
--- NOTE | 2017-11-05 17:12 | NUR ---
[id number]: BLOOD SUGAR IS 90 MG/DL AND NO INSULIN REQUIRED AT THIS TIME
[2017-11-05 21:02] VITALS: BP 128/66
[2017-11-05] MEDS: ATORVASTATIN 10 MG TABLET PO SCH (21:20)
[2017-11-06 08:00] VITALS: BP 128/68
[2017-11-06 08:26] VITALS: BP 128/68
[2017-11-06] MEDS: ARIPIPRAZOLE 5 MG TABLET PO SCH (08:26)
[2017-11-06] MEDS: LISINOPRIL (5MG) 5 MG TABLET PO SCH (08:26)
[2017-11-06] MEDS: DULOXETINE HCL 30 MG CAPSULE.DR PO SCH (08:26)
[2017-11-06] MEDS: BENZTROPINE MESYLATE (1 MG) 1 MG TABLET PO SCH (08:26)
[2017-11-06] MEDS: DIVALPROEX SODIUM 250 MG TABLET.DR PO SCH (08:54)
[2017-11-06] MEDS: METFORMIN 500 MG TABLET PO SCH (08:54)
[2017-11-06] MEDS: IBUPROFEN 400 MG TABLET PO PRN (08:54)
[2017-11-06] MEDS: BLOOD SUGAR DIAGNOSTIC 1 EACH STRIP IN SCH (11:59)
[2017-11-06] MEDS: INSULIN REGULAR, HUMAN 100 UNIT/ML 3 ML VIAL SQ PRN (12:00)
--- NOTE | 2017-11-06 12:35 | NUR ---
GPS DISCHARGE NOTE: [facility] [address] , [place] [address] IN STABLE CONDITION PT A/O X3 DENIES SI/HI VSS, BS 155 2 UNITS GIVEN PT HAD LUNCH, DR FERMIN T.O. ORDER DC HOLD WITH CONTINUE MEDICATIONS, N.P. JACINTA BUCK NOTIFIED OF DISCHARGE . ALL BELONGING AND VALUABLES RETURNED TO PT , PT REFUSED SKIN ASSESSMENT STATED" MY SKIN GOOD "REPORT GIVEN TO QIANA IN SNF.
--- NOTE | 2017-11-06 14:13 | NUR ---
Discharge Note: Pt was discharged to [facility] located at [address] [place] [address]; . She will be transported via [facility] (Trip #[id number]) at 11:45am. Upon discharge, the pt was tearful but stated that she was very excited and content. Pt was in a euthymic mood and appeared to have a normal affect. Pt will be under the care of the psychiatrist, Dr. Soriano, located at [address] [facility] [address]; ) and her dry finisher, Dr. Lira, located at [address] [place] [address]; . Addendum: 11/06/17 at 1422 by NEAL CONNOLLY Pt stated that she does not have any suicidal or homicidal ideation and does not have both auditory and visual hallucinations.
== END 2017-11-06 12:15 | DRG 885 ==
LOC: GPS 10-30 13:58
PROVIDERS: ADMIT Psychiatry & Neurology Psychiatry; ATTEND Psychiatry & Neurology Psychiatry
DX: F31.5 Bipolar disorder, current episode depressed, severe, with psychotic features (principal); F23 Brief psychotic disorder; E11.9 Type 2 diabetes mellitus without complications; I10 Essential (primary) hypertension; E78.5 Hyperlipidemia, unspecified; E66.9 Obesity, unspecified; L60.0 Ingrowing nail; Z68.36 Body mass index [BMI] 36.0-36.9, adult; G89.29 Other chronic pain; M54.5 Low back pain; L60.3 Nail dystrophy; M21.612 Bunion of left foot; M21.611 Bunion of right foot; M20.42 Other hammer toe(s) (acquired), left foot; M20.41 Other hammer toe(s) (acquired), right foot; Z59.0 Homelessness
CPT/HCPCS: 36415; 80053-TC; 80061-TC; 80164-TC; 81000-TC; 82746; 82962-TC; 83540-TC; 83735-TC; 84100-TC; 84443-TC; 87081-TC; J1815

== ENCOUNTER 2018-03-28 10:14 | Inpatient (IN) | payer MEDICARE, OTHER ==
[~2018-03-28] VITALS: Ht 160 cm; Wt 90.7 kg
[~2018-03-28 10:14] MED LIST changes: +METF-440 PO; -METF500T6 PO
--- NOTE | 2018-03-28 14:45 | NUR ---
GPS/RN-NOTES ADMITTED 73 YEARS OLD FEMALE PATIENT FROM [facility]. PATIENT ON [address] FERMIN (PSYCHIATRIST) MADE AWARE OF THE ADMISSION WITH ORDERS. DR. HANLEY (SALES PROJECT ADMINISTRATOR) SEEN THE PATIENT AND RECONCILED MEDICATIONS. MRSA AND FULL BODY ASSESSMENT DONE. BELONGINGS INVENTORIED,CONTRABAND DONE.UPON FACE TO FACE ASSESSMENT WITH THE PATIENT. PATIENT IS ALERT ORIENTED X3 AMBULATORY WITH STEADY GAIT. DENIES SI/HI AT THIS TIME.PATIENT CALM AND COOPERATIVE DURING THE ADMISSION PROCESS.PATIENT WAS ORIENTED IN THE UNIT AND UNIT POLICIES. PATIENT'S RIGHT REVIEWED AND GIVEN TO THE PATIENT.CALLED PATIENT'S BROTHER LIANET FU ) AND LEFT MSG. VIA VOICE MAIL.
[2018-03-28] MEDS ORDERED: LORAZEPAM 0.5 MG TABLET PO PRN (15:00)
[2018-03-28] MEDS ORDERED: MAG HYDROX/AL HYDROX/SIMETH 30 ML UDC PO PRN (15:00)
[2018-03-28] MEDS ORDERED: MAGNESIUM HYDROXIDE 30 ML UDC PO PRN (15:00)
[2018-03-28] MEDS ORDERED: ARIP10TA17 PO (15:21)
[2018-03-28] MEDS ORDERED: DULO60CA45 PO (15:21)
[2018-03-28] MEDS ORDERED: BENZ2AMP PO (15:21)
[2018-03-28 16:00] VITALS: BP 105/56
[2018-03-28] MEDS: METFORMIN 500 MG TABLET PO SCH (16:40)
[2018-03-28 20:00] VITALS: BP 157/93
[2018-03-29] MEDS: ZOLPIDEM TARTRATE 5 MG TABLET PO PRN ×2 (02:07→20:51)
--- NOTE | 2018-03-29 02:07 | NUR ---
UP TO NURSE'S STATION REQUESTING FOR SLEEPING PILL, ZOLPIDEM 5 MG TAB 1 PO GIVEN.
[2018-03-29 06:45] LABS: ALANINE AMINOTRANSFERASE 14 U/L (12-78); ALBUMIN 3.5 g/dL (3.4-5.0); ALKALINE PHOSPHATASE 87 U/L (46-116); ASPARTATE AMINOTRANSFERASE 19 U/L (15-37); BILIRUBIN,TOTAL 0.4 mg/dL (0.2-1.0); CARBON DIOXIDE 31 mmol/L (21-32); CHLORIDE 105 mmol/L (98-107); CREATININE 0.7 mg/dL (0.6-1.3); GLUCOSE 134 mg/dL (74-106); POTASSIUM 3.7 mmol/L (3.5-5.1); SODIUM SERUM 142 mmol/L (136-145); TOTAL PROTEIN, SERUM 6.9 g/dL (6.4-8.2); UREA NITROGEN, BLOOD 12 mg/dL (7-18)
[2018-03-29 06:46] LABS: CHOLESTEROL 116 mg/dL (<200); HDL CHOLESTEROL 58 mg/dL (40-60); LDL 50 mg/dL (0-99); TRIGLYCERIDES 72 mg/dL (30-150)
[2018-03-29] MEDS: BLOOD SUGAR DIAGNOSTIC 1 EACH STRIP IN SCH (07:50)
[2018-03-29 08:00] VITALS: BP 100/53
[2018-03-29] MEDS: METFORMIN 500 MG TABLET PO SCH ×2 (08:49→17:07)
[2018-03-29] MEDS: ATORVASTATIN 10 MG TABLET PO SCH (08:51)
[2018-03-29] MEDS: LISINOPRIL (5MG) 5 MG TABLET PO SCH (08:52)
[2018-03-29 15:16] LABS: CREATININE 0.7 mg/dL (0.6-1.3)
[2018-03-29 16:00] VITALS: BP 145/84
--- NOTE | 2018-03-29 16:28 | NUR ---
GPS/RN-NOTES RECEIVED VERBAL ORDER FROM DR. TOMAS TO CHECK CBC ON THE PATIENT. NOTED AND CARRIED OUT.
[2018-03-29] MEDS: ARIPIPRAZOLE 5 MG TABLET PO SCH (17:06)
[2018-03-29] MEDS: BENZTROPINE MESYLATE (1 MG) 1 MG TABLET PO SCH (17:06)
[2018-03-29 17:26] LABS: BASOPHILS % (AUTO) 0.7 % (0.0-2.0); EOSINOPHILS % (AUTO) 1.4 % (0.0-6.0); HEMATOCRIT 41 % (33-45); HEMOGLOBIN 13.4 g/dL (11.5-14.8); LYMPHOCYTES # (AUTO) 1.2 /CMM (0.8-4.8); MEAN CORPUSCULAR HGB CONC 33 g/dl (31.0-36.0); MEAN CORPUSCULAR VOLUME 92 fL (82-100); MONOCYTES # (AUTO) 0.6 /CMM (0.1-1.30); MONOCYTES % (AUTO) 12.5 % (2.0-12.0); NEUTROPHILS # (AUTO) 3.2 /CMM (1.8-8.9); NEUTROPHILS % (AUTO) 61.4 % (43.0-81.0); PLATELET COUNT (AUTO) 284 /CMM (150-450); RED BLOOD CELL COUNT(AUTO) 4.41 MIL/uL (4.0-5.2); WHITE BLOOD COUNT (AUTO) 5.2 K/uL (4.3-11.0)
[2018-03-29] MEDS: CARBAMAZEPINE 200 MG TABLET PO SCH (17:35)
[2018-03-29 20:00] VITALS: BP 107/63
--- NOTE | 2018-03-30 03:53 | NUR ---
GPS RN NOTES Patient came to the station crying claiming she can not sleep because of the her roommate mumbling when asleep. Patient is asking for transfer to another facility. Offered patient a room change. Patient agreed and was ok to change from 314-B to 315-B. Assisted patient to bed comfortably. Kept bed in lowest position and locked. SPOOL WINDER moved patient's belongings to the new room. Patient is appreciative to the action done.
[2018-03-30 08:00] VITALS: BP 134/84
[2018-03-30] MEDS: METFORMIN 500 MG TABLET PO SCH ×2 (10:02→17:01)
[2018-03-30] MEDS: LISINOPRIL (5MG) 5 MG TABLET PO SCH (10:03)
[2018-03-30] MEDS: ARIPIPRAZOLE 5 MG TABLET PO SCH ×2 (10:03→17:01)
[2018-03-30] MEDS: ATORVASTATIN 10 MG TABLET PO SCH (10:03)
[2018-03-30] MEDS: DULOXETINE HCL 30 MG CAPSULE.DR PO SCH (10:03)
[2018-03-30] MEDS: BLOOD SUGAR DIAGNOSTIC 1 EACH STRIP IN SCH (10:04)
[2018-03-30] MEDS: CARBAMAZEPINE 200 MG TABLET PO SCH ×2 (10:04→17:01)
[2018-03-30] MEDS: BENZTROPINE MESYLATE (1 MG) 1 MG TABLET PO SCH ×2 (10:04→17:01)
[2018-03-30] MEDS: MENTHOL/CETYLPYRD (CEPACOL) 1 LOZ LOZENGE PO PRN ×3 (13:30→21:53)
--- NOTE | 2018-03-30 13:30 | NUR ---
RN NOTES ADMINISTERED LOZENGES FOR SORE THROAT PER PATIENT REQUEST, CONTINUED MONITORING.
[2018-03-30 16:00] VITALS: BP 102/50
[2018-03-30 20:11] VITALS: BP 115/63
[2018-03-30] MEDS: ZOLPIDEM TARTRATE 5 MG TABLET PO PRN (21:53)
[2018-03-31] MEDS: MENTHOL/CETYLPYRD (CEPACOL) 1 LOZ LOZENGE PO PRN ×2 (02:13→14:54)
[2018-03-31] MEDS: BLOOD SUGAR DIAGNOSTIC 1 EACH STRIP IN SCH (06:40)
--- NOTE | 2018-03-31 06:46 | NUR ---
BG 104 NO COVERAGE
[2018-03-31 08:00] VITALS: BP 123/74
[2018-03-31] MEDS: BENZTROPINE MESYLATE (1 MG) 1 MG TABLET PO SCH ×2 (08:48→16:43)
[2018-03-31] MEDS: DULOXETINE HCL 30 MG CAPSULE.DR PO SCH (08:48)
[2018-03-31] MEDS: ARIPIPRAZOLE 5 MG TABLET PO SCH ×2 (08:48→16:43)
[2018-03-31] MEDS: LISINOPRIL (5MG) 5 MG TABLET PO SCH (08:48)
[2018-03-31] MEDS: CARBAMAZEPINE 200 MG TABLET PO SCH ×2 (08:48→16:43)
[2018-03-31] MEDS: ATORVASTATIN 10 MG TABLET PO SCH (08:48)
[2018-03-31] MEDS: METFORMIN 500 MG TABLET PO SCH ×2 (08:53→16:47)
--- NOTE | 2018-03-31 14:22 | NUR ---
CATHLEEN called the pt's brother, Wagner ([phone]), but he did not answer the phone so the SW left a message asking for a call back.
--- NOTE | 2018-03-31 14:23 | NUR ---
Initial Discharge Plan: Pt currently lives alone and resides at [address] [place] [address], [place] [address];([phone]). Per pt, she stated that she would like to go to [facility] or [facility]. She stated that she wanted to be somewhere closer to [place]. CATHLEEN was unable to contact the pt's brother, Wagner ([phone]), but he did not answer the phone. CATHLEEN will work with the pt and the MD regarding appropriate discharge planning. CATHLEEN will form a safe and proper discharge.
[2018-03-31 16:00] VITALS: BP 100/69
--- NOTE | 2018-03-31 19:30 | NUR ---
GPS RN NOTE, RECEIVED PATIENT AWAKE AND IN BED, NO S/S OR COMPLAINTS OF PAIN AT THIS TIME. PATIENT IS DISPLAYING NO S/S OF APPARENT DISTRESS AT THIS TIME. PATIENT BREATHING IS UNLABORED WITH EQUAL RISE AND FALL OF THE CHEST. PATIENT IS ALERT AND ORIENTED X 3 ON ROOM AIR WITH A SPO2 OF 94%. PATIENT IS MED COMPLIANT, COOPERATIVE, DEPRESSED, ANXIOUS, DISORGANIZED, PARANOID, SEXUALLY INAPPROPRIATE AT TIMES, AND NEEDS REDIRECTION. PATIENT HAS A PATIENT DENIES SUICIDE IDEATIONS AND HOMICIDAL IDEATIONS AT THIS TIME. PATIENT ASSISTED WITH TURNING AND REPOSITIONING Q 2HRS AND PRN FOR COMFORT AND CIRCULATION. PATIENT HAS NO NEEDS AT THIS TIME. PATIENT EDUCATED ON THE USE OF THE CALL [place]. PATIENT BED SIDE RAILS UP X 2 FOR SAFETY, BED IS LOCKED, LOW, AND I WILL CONTINUE TO MONITOR AND MAINTAIN SAFETY Q15 MIN WITH THE HELP OF STAFF.
[2018-03-31 20:17] VITALS: BP 121/80
[2018-03-31] MEDS: ZOLPIDEM TARTRATE 5 MG TABLET PO PRN (23:07)
--- NOTE | 2018-03-31 23:07 | NUR ---
GPS RN NOTE, PATIENT HAS A COMPLAINT OF NOT BEING ABLE TO SLEEP AND IS REQUESTING AMBIEN AT THIS TIME. PATIENT VITAL SIGNS ARE STABLE. GAVE AMBIEN 5 MG PO HS PRN ORDERED. WILL REASSESS FOR INSOMNIA AND I WILL CONTINUE TO MONITOR THIS PATIENT.
[2018-04-01] MEDS: ACETAMINOPHEN 325 MG TABLET PO PRN (03:47)
[2018-04-01] MEDS: MENTHOL/CETYLPYRD (CEPACOL) 1 LOZ LOZENGE PO PRN ×2 (03:47→16:16)
--- NOTE | 2018-04-01 03:47 | NUR ---
GPS RN NOTE, PATIENT HAS A COMPLAINT OF A SORE THROAT AND CHRONIC LEFT HIP PAIN AT 3 OUT 10 ON THE PAIN SCALE AND IS REQUESTING CEPACOL TYLENOL AT THIS TIME. PATIENT VITAL SIGNS ARE STABLE. GAVE TYLENOL 650MG PO Q6HR PRN AND CEPACOL 1 TOI Q2HR PRN ORDERED. WILL REASSESS FOR PAIN AND I WILL CONTINUE TO MONITOR THIS PATIENT.
[2018-04-01] MEDS: ALBUTEROL FS 2.5 MG/3 ML VIAL.NEB NEB PRN (04:37)
[2018-04-01 08:00] VITALS: BP 153/84
[2018-04-01] MEDS: BLOOD SUGAR DIAGNOSTIC 1 EACH STRIP IN SCH (08:03)
[2018-04-01] MEDS: ATORVASTATIN 10 MG TABLET PO SCH (08:04)
[2018-04-01] MEDS: ARIPIPRAZOLE 5 MG TABLET PO SCH ×2 (08:05→16:11)
[2018-04-01] MEDS: DULOXETINE HCL 30 MG CAPSULE.DR PO SCH (08:05)
[2018-04-01] MEDS: LISINOPRIL (5MG) 5 MG TABLET PO SCH (08:05)
[2018-04-01] MEDS: CARBAMAZEPINE 200 MG TABLET PO SCH ×2 (08:06→16:12)
[2018-04-01] MEDS: METFORMIN 500 MG TABLET PO SCH ×2 (08:06→16:12)
[2018-04-01] MEDS: BENZTROPINE MESYLATE (1 MG) 1 MG TABLET PO SCH ×2 (08:06→16:11)
[2018-04-01 16:15] VITALS: BP 145/74
--- NOTE | 2018-04-01 19:15 | NUR ---
GPS RN OPENING NOTE RECEIVED PT IN BED, NO S/S OF DISTRESS AT THIS TIME, DENIES SI/HI, ALERT AN ORIENTED X 3, TOLERATING ROOM AIR O2 SAT 96%. PATIENT IS AMBULATORY AND INDEPENDENT IN BED MOBILITY. SAFETY PRECAUTIONS IN PLACE, BED PLACED IN LOW POSITION AND LOCKED IN PLACE.WILL CONTINUE TO MONITOR FOR PT SAFETY.
[2018-04-01 20:17] VITALS: BP 116/58
--- NOTE | 2018-04-01 21:56 | NUR ---
REPORT GIVEN TO FIGUEROA JOHNSON FOR CONTINUITY OF CARE.
[2018-04-02] MEDS: ALBUTEROL FS 2.5 MG/3 ML VIAL.NEB NEB PRN ×2 (00:50→21:02)
[2018-04-02] MEDS: GUAIFENESIN/D-METHORPHAN HB 5 ML UDC PO PRN ×2 (01:06→20:27)
[2018-04-02] MEDS: BLOOD SUGAR DIAGNOSTIC 1 EACH STRIP IN SCH (07:47)
[2018-04-02 08:00] VITALS: BP 150/85
[2018-04-02] MEDS: METFORMIN 500 MG TABLET PO SCH ×2 (08:39→17:42)
[2018-04-02] MEDS: LISINOPRIL (5MG) 5 MG TABLET PO SCH (08:39)
[2018-04-02] MEDS: CARBAMAZEPINE 200 MG TABLET PO SCH ×2 (08:40→17:42)
[2018-04-02] MEDS: ATORVASTATIN 10 MG TABLET PO SCH (08:40)
[2018-04-02] MEDS: BENZTROPINE MESYLATE (1 MG) 1 MG TABLET PO SCH ×2 (08:40→17:42)
[2018-04-02] MEDS: DULOXETINE HCL 30 MG CAPSULE.DR PO SCH (08:40)
[2018-04-02] MEDS: ARIPIPRAZOLE 5 MG TABLET PO SCH ×2 (08:40→17:42)
--- NOTE | 2018-04-02 12:44 | NUR ---
CATHLEEN called the pt's brother, Wagner ([phone]), and he informed the SW that the pt was living at the [facility] in [place] and whether or not they will extend her renting agreement for Rm 314. He stated that the pt does not take his advice and that he is not involved in her life.
--- NOTE | 2018-04-02 12:51 | NUR ---
CATHLEEN sent a referral to two facilities for the pt: [facility] at the fax number: [phone] [facility]: [phone]
--- NOTE | 2018-04-02 13:10 | NUR ---
Group note: Pt attended a group session on 04/02/18 at 11AM discussing the topic that if they could change one thing in their life what would it be and why. S: Pt had stated that she is not comfortable with the topic of the group and participated when the topic included their support systems. I am looking forward to being back in [place] with my brother because he is the only person in my life who has been there for me. O: Pt was present during the group session and was cooperative. Pt appeared to be in a depressed mood with an anxious affect. Pt was emotional when discussing her which was observed through her crying. A: Pt understood that she has been through many tough situations in her life leading up to this point and that is important for her to be able to recognize her support system and how she can help herself as well. P: Pt will continue milieu treatment and medication stabilization.
[2018-04-02 16:00] VITALS: BP 106/56
[2018-04-02 19:34] VITALS: BP 117/54
[2018-04-02] MEDS: MENTHOL/CETYLPYRD (CEPACOL) 1 LOZ LOZENGE PO PRN (20:28)
[2018-04-03] MEDS: GUAIFENESIN/D-METHORPHAN HB 5 ML UDC PO PRN ×3 (04:01→16:32)
[2018-04-03] MEDS: MENTHOL/CETYLPYRD (CEPACOL) 1 LOZ LOZENGE PO PRN ×3 (04:02→16:32)
[2018-04-03] MEDS: ALBUTEROL FS 2.5 MG/3 ML VIAL.NEB NEB PRN (04:34)
[2018-04-03 08:00] VITALS: BP 130/69
[2018-04-03] MEDS: METFORMIN 500 MG TABLET PO SCH ×2 (08:11→16:32)
[2018-04-03] MEDS: BENZTROPINE MESYLATE (1 MG) 1 MG TABLET PO SCH ×2 (08:11→16:31)
[2018-04-03] MEDS: ATORVASTATIN 10 MG TABLET PO SCH (08:11)
[2018-04-03] MEDS: DULOXETINE HCL 30 MG CAPSULE.DR PO SCH (08:11)
[2018-04-03] MEDS: CARBAMAZEPINE 200 MG TABLET PO SCH ×2 (08:11→16:31)
[2018-04-03] MEDS: ARIPIPRAZOLE 5 MG TABLET PO SCH ×2 (08:11→16:31)
[2018-04-03] MEDS: LISINOPRIL (5MG) 5 MG TABLET PO SCH (08:12)
--- NOTE | 2018-04-03 09:26 | NUR ---
Carley ([phone]) from [facility] called the SW and informed her that the pt was accepted to their facility.
--- NOTE | 2018-04-03 09:30 | NUR ---
Sindhu ([phone]) from [facility] stated that the pt will be evaluated tomorrow (Saturday04/04/18) by Rogelioar to see if she will be accepted to their facility.
[2018-04-03] MEDS: ACETAMINOPHEN 325 MG TABLET PO PRN (15:25)
[2018-04-03 16:00] VITALS: BP 115/54
[2018-04-03] MEDS: ALBUTEROL FS 2.5 MG/0.5 ML VIAL.NEB NEB SCH ×3 (16:05→23:30)
[2018-04-03] MEDS: IPRATROPIUM NEB FS 0.5 MG/2.5 ML AMPUL.NEB NEB SCH ×3 (16:05→23:30)
[2018-04-03 20:34] VITALS: BP 114/53
[2018-04-03] MEDS: ZOLPIDEM TARTRATE 5 MG TABLET PO PRN (20:50)
[2018-04-04] MEDS: ALBUTEROL FS 2.5 MG/0.5 ML VIAL.NEB NEB SCH ×4 (03:30→14:48)
[2018-04-04] MEDS: IPRATROPIUM NEB FS 0.5 MG/2.5 ML AMPUL.NEB NEB SCH ×4 (03:30→14:48)
[2018-04-04] MEDS: ALBUTEROL FS 2.5 MG/3 ML VIAL.NEB NEB PRN (05:20)
[2018-04-04 08:00] VITALS: BP 132/59
[2018-04-04] MEDS: MENTHOL/CETYLPYRD (CEPACOL) 1 LOZ LOZENGE PO PRN (08:24)
[2018-04-04] MEDS: ARIPIPRAZOLE 5 MG TABLET PO SCH ×2 (08:24→17:19)
[2018-04-04] MEDS: CARBAMAZEPINE 200 MG TABLET PO SCH ×2 (08:24→17:19)
[2018-04-04] MEDS: BENZTROPINE MESYLATE (1 MG) 1 MG TABLET PO SCH ×2 (08:24→17:19)
[2018-04-04] MEDS: ATORVASTATIN 10 MG TABLET PO SCH (08:24)
[2018-04-04] MEDS: GUAIFENESIN/D-METHORPHAN HB 5 ML UDC PO PRN (08:24)
[2018-04-04] MEDS: LISINOPRIL (5MG) 5 MG TABLET PO SCH (08:25)
[2018-04-04] MEDS: DULOXETINE HCL 30 MG CAPSULE.DR PO SCH (08:25)
[2018-04-04] MEDS: METFORMIN 500 MG TABLET PO SCH ×2 (08:25→17:19)
--- NOTE | 2018-04-04 13:15 | NUR ---
Sindhu ([phone]) from [facility] stated that the pt was accepted to their facility.
--- NOTE | 2018-04-04 14:35 | NUR ---
CATHLEEN called the pt's brother, Wagner ([phone]), and informed him that the pt will be discharging to [facility] ([facility]) via voicemail.
--- NOTE | 2018-04-04 15:10 | NUR ---
Report given to Lynn NAVA) over the facility.
--- NOTE | 2018-04-04 15:13 | NUR ---
Discharge Note: Pt was discharged to [facility] ([facility]) located at [address], [place] [address]; ([phone]). The facility picked up the pt at 3pm. Pts brother, Wagner ([phone]), was informed of this discharge. Upon discharge, the pt stated that she does not have any suicidal or homicidal ideation as well as no auditory or visual hallucinations. Pt appeared to be in a euthymic mood and her affect presented as calm. Pt will be under the care of radio operator, Dr. Galvin, located at [address] [place] [address]; and psychiatrist, Dr. Ma, located at [address], [place] [address]; .
[2018-04-04 16:00] VITALS: BP 148/66
--- NOTE | 2018-04-04 17:52 | NUR ---
GPS/RN - Discharge Patient discharged to [facility] in stable condition. Patient compliant with medications and cooperative with care. Patient denies SI/HI at this time. Patient refused discharge photo to be taken. All belongings given to the patient and she denies any missing items. Report given to FIGUEROA Bailey at [facility] for continuity of care.
== END 2018-04-04 17:52 | DRG 885 ==
LOC: GPS 14:28
PROVIDERS: ADMIT Psychiatry & Neurology Psychiatry; ATTEND Psychiatry & Neurology Psychiatry
DX: F31.5 Bipolar disorder, current episode depressed, severe, with psychotic features (principal); Z73.6 Limitation of activities due to disability; E66.9 Obesity, unspecified; E11.9 Type 2 diabetes mellitus without complications; E78.5 Hyperlipidemia, unspecified; I10 Essential (primary) hypertension; Z68.35 Body mass index [BMI] 35.0-35.9, adult; Z59.0 Homelessness; Z98.890 Other specified postprocedural states; Z90.49 Acquired absence of other specified parts of digestive tract; Z90.710 Acquired absence of both cervix and uterus; E66.01 Morbid (severe) obesity due to excess calories; H40.9 Unspecified glaucoma
CPT/HCPCS: 36415; 71045-TC; 80053-TC; 80061-TC; 80156-TC; 82565-TC; 82962-TC; 85025-TC; 87081-TC; 94760-TC; Z7610